=== PATIENT | female | born 1975 | race American Indian/Alaskan Native ===

== ENCOUNTER 2016-06-01 15:23 | Emergency (ER) | payer MEDICAID, OTHER ==
[2016-06-01] MEDS ORDERED: NITROSTAT SL ONE ×2 (16:15→18:47)
--- NOTE | 2016-06-01 16:33 | Emergency Department Report ---
HPI - General Chief Complaint: Chest Pain Time Seen by Provider: 06/01/16 16:30 - HPI HPI: This is a 40-year-old female presents to the emergency department by EMS from home with complaint of midsternal nonradiating chest pain and some shortness of breath that began about 50 minutes prior to presentation. The patient took 3 baby aspirin and called EMS. In route she received some nitroglycerin which helped with the chest discomfort but it did return. She is a tobacco smoker. She has a past medical history of some asthma and borderline hypertension but is not on any medication. Her primary care doctor is Dr. Lauren. No recent travel or sick contacts at home. She has never had a stress test. There are no aggravating factors. No family history of early cardiac or events. ED Past Medical Hx - Past Medical History Hx Asthma: Yes - Social History Smoking Status: Current Every Day Smoker Substance Use Type: None - Medications Home Medications: Home Medications Medication Instructions Recorded Confirmed Last Taken Type Cyclobenzaprine [Flexeril] 10 mg PO TID PRN #15 tablet 05/31/13 Unknown Rx Meloxicam [Mobic] 7.5 mg PO QDAY #15 tablet 05/31/13 Unknown Rx ED Review of Systems ROS: Stated complaint: CP Other details as noted in HPI Comment: All other systems reviewed and negative Constitutional: denies: chills, fever Eyes: denies: eye pain, eye discharge, vision change ENT: denies: ear pain, throat pain Respiratory: shortness of breath. denies: cough Cardiovascular: chest pain. denies: palpitations Gastrointestinal: denies: abdominal pain, nausea, diarrhea Genitourinary: denies: urgency, dysuria, discharge Musculoskeletal: denies: back pain, joint swelling, arthralgia Skin: denies: rash, lesions Neurological: headache. denies: weakness, numbness Physical Exam - Physical Exam Vital Signs: Vital Signs 06/01/16 16:21 Temperature 98.3 F Pulse Rate 86 Respiratory 18 Rate Blood Pressure 129/85 [Left] O2 Sat by Pulse 100 Oximetry Physical Exam: GENERAL: The patient is well-developed well-nourished. HEENT: Normocephalic. Atraumatic. Extraocular motions are intact. Patient has moist mucous membranes. Pupils equal reactive to light bilaterally. No nystagmus. NECK: Supple. Trachea is midline. CHEST/LUNGS: Clear to auscultation. There is no respiratory distress noted. HEART/CARDIOVASCULAR: Regular. There is no tachycardia. There is no gallop rub or murmur. ABDOMEN: Abdomen is soft, nontender. Patient has normal bowel sounds. There is no abdominal distention. SKIN: Warm and dry. NEURO: The patient is awake, alert, and oriented. The patient is cooperative. The patient has no focal neurologic deficits. The patient has normal speech. MUSCULOSKELETAL: There is no tenderness or deformity. There is no limitation range of motion. There is no evidence of acute injury. ED Course Vital Signs 06/01/16 16:21 Temperature 98.3 F Pulse Rate 86 Respiratory 18 Rate Blood Pressure 129/85 [Left] O2 Sat by Pulse 100 Oximetry ED Medical Decision Making - Lab Data Result diagrams: 06/01/16 16:32 06/01/16 16:32 - EKG Data -: EKG Interpreted by Me EKG shows normal: sinus rhythm, axis, intervals, QRS complexes, ST-T waves Rate: normal - EKG Data When compared to previous EKG there are: previous EKG unavailable Interpretation: normal EKG - Radiology Data Radiology results: image reviewed interpreted by me: Chest x-ray did not show any acute process. Heart is normal shape and size. No effusions. No pneumothorax. No signs of pneumonia seen. - Medical Decision Making 40-year-old female presents the emergency department with complaint of some substernal chest pain that began just prior to presentation. Patient had some response to nitroglycerin in route and when she first arrived. EKG is normal without any ST elevation ND, ischemia or dysrhythmia. Chest x-ray does not show any acute process. Patient's labs have been unremarkable including negative troponins 2 and negative d-dimer. Patient was given some pain medication and antibiotics were is and upon reevaluation she is feeling much better. Patient also had a headache that improved with some IV fluid resuscitation and some Toradol. There was no focal, motor or sensory deficits in the patient's cranial nerves are intact. For these reasons I did not feel that CT imaging of the head was necessary. The patient will be discharged home to follow-up with her primary care doctor and also will be given a referral for cardiology. She will return to the ER with any worsening of her symptoms or any acute distress. - Differential Diagnosis ND, PE, costochondritis, pneumonia, GERD, CHF Critical Care Time: No Critical care attestation.: If time is entered above; I have spent that time in minutes in the direct care of this critically ill patient, excluding procedure time. ED Disposition Clinical Impression: Chest pain Qualifiers: Chest pain type: unspecified Qualified Code(s): R07.9 - Chest pain, unspecified Headache Qualifiers: Headache type: unspecified Headache chronicity pattern: unspecified pattern Intractability: not intractable Qualified Code(s): R51 - Headache Disposition: DISCHARGED TO HOME OR SELFCARE Is pt being admited?: No Condition: Stable Instructions: Chest Pain (ED), Acute Headache (ED) Additional Instructions: Is follow-up with your primary care doctor the next few days. Return to the emergency department with any worsening of your symptoms or any acute distress. I have given referral for a local wall man, Dr. Romeo, complications like to follow up regarding her chest pain for an outpatient stress test. Referrals: JOSUE LAUREN MD [Primary Care Provider] - 3-5 Days BEATRIZ ROMEO MD [Staff Physician] - 3-5 Days Time of Disposition: 22:56
--- NOTE | 2016-06-01 16:52 | XRay Report ---
ROUTINE CHEST, TWO VIEWS: PA and lateral views demonstrate the heart and mediastinal contour to be of normal size and shape. The lungs are clear and fully expanded and the soft tissues and bony structures are normal. IMPRESSION: Normal study.
[2016-06-01 16:54] LABS: Basophils % (Auto) 0.9 % (0.0-1.8); Eosinophils % (Auto) 1.3 % (0.0-4.3); Mean Corpuscular HGB Conc 30 % (30-34); Mean Corpuscular Volume 77 fl (79-97); Platelet Count 237 K/mm3 (140-440); Red Blood Count 5.07 M/mm3 (3.65-5.03); Red Cell Distribution Width 14.9 % (13.2-15.2); White Blood Count 6.6 K/mm3 (4.5-11.0)
[2016-06-01 17:06] LABS: Anion Gap 16 mmol/L; BUN/Creatinine Ratio 13.33; Blood Urea Nitrogen 8 mg/dL (7-17); Calcium 8.6 mg/dL (8.4-10.2); Carbon Dioxide 25 mmol/L (22-30); Chloride 99.3 mmol/L (98-107); Glucose 88 mg/dL (65-100); Potassium 3.4 mmol/L (3.6-5.0); Sodium 137 mmol/L (137-145)
[2016-06-01 17:08] LABS: Hematocrit 38.9 % (30.3-42.9); Hemoglobin 11.8 gm/dl (10.1-14.3); Mean Corpuscular Hemoglobin 23 pg (28-32)
[2016-06-01] MEDS ORDERED: K-DUR PO ONE (17:30)
[2016-06-01] MEDS ORDERED: MORPHINE IV ONE (17:31)
[2016-06-01] MEDS ORDERED: NACL 0.9% 500 ML 500 ML IV ONE (21:11)
[2016-06-01] MEDS ORDERED: TORADOL IV ONE (21:11)
[2016-06-01] MEDS ORDERED: ZOFRAN IV ONE (21:11)
[2016-06-01 23:31] VITALS: BP 126/82
== END 2016-06-01 23:31 | disposition home or self-care (01) ==
LOC: ED 15:23
DX: R07.2 Precordial pain (principal); R51 Headache; J45.909 Unspecified asthma, uncomplicated; F17.200 Nicotine dependence, unspecified, uncomplicated
CPT/HCPCS: 36415; 71020; 80048; 83880; 84484; 85025; 85379; 96374; 96375; 99284; J1885; J2270; J2405; J7040

== ENCOUNTER 2020-12-20 01:34 | Emergency (ER) | payer SELFPAY ==
[2020-12-20 01:54] VITALS: BP 139/97
[2020-12-20] MEDS ORDERED: HYDROcodone/ACETAMINOPHEN 5-325 MG TAB PO ONE ×2 (01:59→04:58)
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
== END 2020-12-20 05:33 | disposition home or self-care (01) ==
LOC: ED 01:34
DX: S50.12XA Contusion of left forearm, initial encounter (principal); S60.012A Contusion of left thumb without damage to nail, initial encounter; J45.909 Unspecified asthma, uncomplicated; F17.200 Nicotine dependence, unspecified, uncomplicated; Z88.0 Allergy status to penicillin; Z79.899 Other long term (current) drug therapy; Y04.8XXA Assault by other bodily force, initial encounter; Y93.89 Activity, other specified; Y92.89 Other specified places as the place of occurrence of the external cause; Y99.8 Other external cause status
CPT/HCPCS: 99283